=== PATIENT | male | born 1980 | race Caucasian/White ===

== ENCOUNTER 2020-04-04 14:09 | Emergency (ER) | payer BC ==
[~2020-04-04] VITALS: Ht 170.2 cm; Wt 86.2 kg
[2020-04-04 14:27] VITALS: Ht 170.2 cm; Wt 86.2 kg
[2020-04-04 15:54] VITALS: BP 117/83
== END 2020-04-04 15:54 | disposition home or self-care (01) ==
LOC: ED 14:09
DX: M54.5 Low back pain (principal)
CPT/HCPCS: J1885